=== PATIENT | female | born 1945 | race Asian ===

== ENCOUNTER 2016-09-10 18:07 | Emergency (ER) | payer MEDICAID ==
[~2016-09-10] VITALS: Ht 157.5 cm; Wt 63.5 kg
--- NOTE | 2016-09-10 18:20 | NUR ---
PT CAME IN FOR ABNORMAL LABS FROM HOME HEALTH NURSE, PMD TOLD HER TO GO HERE TO BE SEEN. PT DOES NOT KNOW WHICH LAB SPEICIFICALLY. NAD NOTED. PT NOTED ANXIOUS. COMPLAINS OF MINIMAL PAIN ON LEFT LEG, DENIES INJURY. NO REDNESS, NO SWELLING NOTED. SEEN BY MD FOR EVAL. SAFETY AND COMFORT MEASURESPROVIDED. WILL MONITOR.
--- NOTE | 2016-09-10 18:45 | NUR ---
IV ACCESS STARTED. BLOOD DRAWN FOR LABS.
[2016-09-10] MEDS ORDERED: LEVETIRACETAM (500MG) 500 MG in IV NS 0.9% 100 ML IV SCH (19:00)
[2016-09-10 19:07] LABS: BASOPHILS % (AUTO) 0.4 % (0.0-2.0); EOSINOPHILS # (AUTO) 0.1 /CMM (0.0-0.7); EOSINOPHILS % (AUTO) 1.1 % (0.0-6.0); HEMATOCRIT 31 % (33-45); HEMOGLOBIN 10.5 g/dL (11.5-14.8); LYMPHOCYTES # (AUTO) 1.5 /CMM (0.8-4.8); LYMPHOCYTES % (AUTO) 11.8 % (20.0-44.0); MEAN CORPUSCULAR HEMOGLOBIN 26 PG (26.0-33.0); MEAN CORPUSCULAR HGB CONC 34 g/dl (31.0-36.0); MEAN CORPUSCULAR VOLUME 77 fL (82-100); MONOCYTES # (AUTO) 1.4 /CMM (0.1-1.30); MONOCYTES % (AUTO) 11.4 % (2.0-12.0); NEUTROPHILS # (AUTO) 9.5 /CMM (1.8-8.9); NEUTROPHILS % (AUTO) 75.3 % (43.0-81.0); PLATELET COUNT (AUTO) 262 /CMM (150-450); RDW COEFFICIENT OF VARIATION 16.2 (11.5-15.0); RED BLOOD CELL COUNT(AUTO) 4.05 MIL/uL (4.0-5.2); WHITE BLOOD COUNT (AUTO) 12.5 K/uL (4.3-11.0)
--- NOTE | 2016-09-10 19:17 | NUR ---
PT TAKEN TO CT.
[2016-09-10 19:31] LABS: CALCIUM, SERUM 8.6 mg/dL (8.5-10.1); CREATININE 1.6 mg/dL (0.6-1.3)
[2016-09-10 19:36] LABS: APPEARANCE,URINE Clear (CLEAR); BILIRUBIN,URINE Negative (NEGATIVE); BLOOD, URINE Moderate Ery/uL (NEGATIVE); COLOR,URINE Yellow (YELLOW); KETONES,URINE Negative (NEGATIVE); LEUKOCYTE ESTERASE ,URINE Trace (NEGATIVE); NITRITE, URINE Negative (NEGATIVE); PROTEIN,URINE Negative (NEGATIVE); UGLUCOSE Negative (NEGATIVE); UROBILINOGEN,URINE 0.2 EU/dL (0.2)
[2016-09-10 19:36] LABS: BILIRUBIN,DIRECT 0.1 mg/dL (0.0-0.2); BILIRUBIN,TOTAL 0.4 mg/dL (0.2-1.0); TOTAL PROTEIN, SERUM 7.5 g/dL (6.4-8.2)
--- NOTE | 2016-09-10 19:48 | NUR ---
RADILOGY TECH AT BED SIDE FOR VENOUS DOUPLEX
[2016-09-10 19:54] LABS: ADD URINE CULTURE NO; BACTERIA,URINE Few /HPF (None Seen); SQUAMOUS EPITHELIAL CELL,UR Few /HPF (None Seen)
--- NOTE | 2016-09-10 20:31 | NUR ---
SECOND IV STARTED; 18G LEFT HAND
--- NOTE | 2016-09-10 20:40 | NUR ---
MAC PAGED, FACESHEET AND CT RESULT FAXED TO [phone]
--- NOTE | 2016-09-10 20:48 | NUR ---
[facility] CATH STARTED ORDERED
--- NOTE | 2016-09-10 22:11 | NUR ---
PT IS RESTING IN ER BED, NAD NOTED, SKIN WARM AND DRY. PUPILS PEARRL, PT IS MOVING ALL EXTREMITES FREELY. PT IS ON DIRECTOR INVESTOR RELATIONS, WILL CONITNUE TO MONITOR
--- NOTE | 2016-09-10 22:42 | NUR ---
CALL FROM [facility] [place]. PT ACCEPTED AT [facility] BY DR RASHID/ DR GARCIA. # FOR REPORT [phone]. MAC# [phone]
--- NOTE | 2016-09-10 22:49 | NUR ---
[facility] CALLED FOR TRANSPORT. ETA [phone]
--- NOTE | 2016-09-10 23:14 | NUR ---
KENNETH JOHNSON TOOK REPORT FOR DESTINEY
[2016-09-11 00:21] VITALS: BP 110/60
--- NOTE | 2016-09-11 00:21 | NUR ---
PT RESTING IN ER BED, NAD NOTED, SKIN WARM AND DRY, RR EVEN AND UNLABORED. WILL CONTINUE TO MONITOR
--- NOTE | 2016-09-11 01:38 | NUR ---
REPORT GIVEN TO EMT FOR TRANSPORT
== END 2016-09-11 01:40 ==
LOC: ER 18:09
DX: N28.89 Other specified disorders of kidney and ureter (principal); N13.4 Hydroureter; I10 Essential (primary) hypertension; Z98.890 Other specified postprocedural states
CPT/HCPCS: 36415; 80048-TC; 80076-TC; 81000-TC; 83690-TC; 85025-TC; 93970-TC; A4606; Z7610